=== PATIENT | female | born 1995 | race Caucasian/White ===

== ENCOUNTER 2016-08-07 22:18 | Emergency (ER) | payer OTHER ==
[~2016-08-07] VITALS: Ht 152.4 cm; Wt 56.0 kg
[~2016-08-07 22:18] MED LIST: BCPILLS PO; BIOTCAP2 PO; CHOL100010 PO
[2016-08-07 22:25] VITALS: Ht 152.4 cm; Wt 56.0 kg
[2016-08-08 00:32] VITALS: TEMP 36.9
[2016-08-08 00:45] VITALS: O2SAT 98
[2016-08-08] MEDS ORDERED: TRVHP PO (00:47)
[2016-08-08] MEDS ORDERED: RALT400T PO (00:47)
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
[2016-08-08] MEDS ORDERED: LEVONORGESTREL (EMERGENCY OC) 1.5 MG TAB PO ONE (00:54)
[2016-08-08] MEDS ORDERED: PHENERGAN 25MG HOMEPACK PO ONE (00:54)
[2016-08-08] MEDS ORDERED: AZITHROMYCIN 250 MG TAB ONE (00:54)
[2016-08-08] MEDS ORDERED: ONDANSETRON 4MG OD TAB ONE (00:55)
[2016-08-08] MEDS ORDERED: CEFTRIAXONE SOD 350MG/ML 1 GM VIAL IM ONE (00:55)
[2016-08-08] MEDS ORDERED: HIV POST EXPOSURE PROPHYLAXIS KIT ONE (00:57)
[2016-08-08 01:55] VITALS: BP 123/72; PULSE 92; O2SAT 99
== END 2016-08-08 01:45 | disposition home or self-care (01) ==
LOC: C.EDB 22:20
DX: T74.21XA Adult sexual abuse, confirmed, initial encounter (principal); X58.XXXA Exposure to other specified factors, initial encounter; Y07.59 Other non-family member, perpetrator of maltreatment and neglect

== ENCOUNTER 2017-03-17 21:02 | Emergency (ER) | payer OTHER ==
[~2017-03-17] VITALS: Ht 152.4 cm; Wt 58.1 kg
[~2017-03-17 21:02] MED LIST changes: -BCPILLS PO; -BIOTCAP2 PO; -CHOL100010 PO; +RALT400T PO; +TRVHP PO
[2017-03-17 21:04] VITALS: TEMP 36.4; Ht 152.4 cm; Wt 58.1 kg
[2017-03-17] MEDS ORDERED: PSEUCAP67 PO (21:28)
[2017-03-17] MEDS ORDERED: IBUP-103 PO (21:28)
[2017-03-17] MEDS ORDERED: PHENAZOPYRIDINE HCL 200 MG TAB PO STA (21:36)
--- NOTE | 2017-03-17 21:44 | EMERGENCY ROOM VISIT NOTE ---
History Report prepared by Tapan: Omari Aparicio Under the Supervision of: Dr. Zenaida Powell D.O. First contact with patient: 21:23 Chief Complaint: URINARY SYMPTOMS Stated Complaint: BURNING VAGINAL AREA, BLOOD IN URINE, ABD CRAMPS Nursing Triage Summary: urinary pain, burning, started yesterday. had blood in urine earlier today. symptoms now causing cramping in lower abdomen. History of Present Illness The patient is a 22 year old female who presents to the Emergency Room with complaints of intermittent dysuria that began last night. She rates her discomfort as a 6/10 in severity. The patient states that she was experiencing a headache, lightheadedness, soreness, and a slight fever two weeks ago and went to visit her PCP who said it was viral. She states that her doctor told her to take Advil, which she admits taking. The patient states that last night she noticed that she was experiencing a burning sensation in her genital area. She also reports that she has been experiencing dysuria and urgency. The patient states that her symptoms resolved until later today. She states that she started to experience chills, a headache, an episode of vomiting, hematuria , and dysuria. The patient also reports experiencing lower abdominal cramping, but denies any radiation to her back. The patient admits to a history of urinary reflux disease as a child. She also reports taking Bactrim for two years as a child. The patient denies back pain, fever, vaginal discharge, vaginal bleeding, a possible , and anaphylaxis or rash from an antibiotic. Source of History: patient Onset: last night Position: other (global) Symptom Intensity: 6/10 Timing: intermittent Associated Symptoms: + chills, + headache, + vomiting, + abdominal pain, + urinary symptoms, No fevers, No back pain Review of Systems See HPI for pertinent positives & negatives. A total of 10 systems reviewed and were otherwise negative. Past Medical & Surgical Medical Problems: (1) No Known Active Medical Problems Family History Hypertension Social History Smoking Status: Never Smoker Alcohol Use: none Drug Use: none Marital Status: single Housing Status: lives with roommate Occupation Status: [employer] student Current/Historical Medications Scheduled Cephalexin (Keflex), 1 CAP PO BID Etonogestrel (Nexplanon), 168 MG INTRAD CONTINOUS Scheduled PRN Ibuprofen Tab (Advil), 400 MG PO Q6H PRN for Pain Pseudoephedrine-Ibuprofen (Advil Cold & Sinus), 1 CAP PO UD PRN for Cold/Sinus Symptoms Allergies Coded Allergies: Lorazepam (Verified Adverse Reaction, Unknown, hallucinations, 08/07/16) Physical Exam Vital Signs Date Time Temp Pulse Resp B/P (MAP) Pulse Ox O2 Delivery O2 Flow Rate FiO2 03/17/17 22:19 80 18 107/68 100 Room Air 03/17/17 21:04 36.4 90 18 122/77 100 Room Air Physical Exam GENERAL: alert, well appearing, well nourished, no distress, non-toxic EYE EXAM: normal conjunctiva, PERRL and EOM's grossly intact NECK: supple, no nuchal rigidity, no adenopathy, non-tender LUNGS: Clear to auscultation. Normal chest wall mechanics HEART: no murmurs, S1 normal and S2 normal ABDOMEN: abdomen soft, mild suprapubic discomfort, normo-active bowel sounds, no masses, no rebound or guarding. BACK: Back is symmetrical on inspection and there is no deformity, no midline tenderness, no CVA tenderness. SKIN: no rashes and no bruising UPPER EXTREMITIES: upper extremities are grossly normal. LOWER EXTREMITIES: No pitting edema. NEURO EXAM: Normal sensorium, cranial nerves II-XII grossly intact, normal speech, no gross weakness of arms, no gross weakness of legs. Gross sensation intact. Medical Decision & Procedures Laboratory Results Test 03/17/17 21:06 Urine Color YELLOW Urine Appearance CLEAR (CLEAR) Urine pH 6.5 (4.5-7.5) Urine Specific [place] 1.009 (1.000-1.030) Urine Protein NEG (NEG) Urine Glucose (UA) NEG (NEG) Urine Ketones NEG (NEG) Urine Occult Blood 3+ (NEG) Urine Nitrite NEG (NEG) Urine Bilirubin NEG (NEG) Urine Urobilinogen NEG (NEG) Urine Leukocyte Esterase LARGE (NEG) Urine WBC (Auto) >30 /hpf (0-5) Urine RBC (Auto) 10-30 /hpf (0-4) Urine Hyaline Casts (Auto) 0 /lpf (0-5) Urine Epithelial Cells (Auto) 0-5 /lpf (0-5) Urine Bacteria (Auto) 1+ (NEG) Urine Renal Epithelial Cells /lpf (0-5) Urine Test NEG (NEG) Laboratory results per my review. Medications Administered Medications (Trade) Dose Ordered Sig/Hernan Route Start Time Stop Time Status Last Admin Dose Admin Phenazopyridine HCl (Pyridium Tab) 200 mg NOW STAT PO 03/17/17 21:36 03/17/17 21:37 DC 03/17/17 21:42 200 MG Cephalexin Monohydrate (Keflex Cap) 500 mg NOW ONCE PO 03/17/17 22:15 03/17/17 22:16 DC 03/17/17 22:31 500 MG ED Course 2051: The patient was evaluated in room C06. A complete history and physical exam was performed. 2135: Ordered Pyridium Tab 200 mg PO. 2214: Ordered Keflex Cap 500 mg PO. 2223: Upon reevaluation, the patient is feeling better. I discussed the findings and the treatment plan with the patient. She verbalizes agreement and understanding. The patient was discharged home. Medical Decision The differential diagnosis includes but is not limited to: UTI, pyelonephritis, , ectopic , STD, torsion, TOA. Patient well-appearing here despite complaints, doubt pyelonephritis, no symptoms to suggest kidney stone, doubt ectopic , torsion, patient not concerned with recent exposure to STDs, doubt PID, TOA, ruptured cyst. Patient' s UA suggestive of UTI as this patient's description of evolving symptoms last 48 hours. Discussed with patient use of antibiotics, symptoms to watch and return for, she verbalized understanding was agreeable to plan. Medication Reconcilliation Current Medication List: was personally reviewed by me Blood Pressure Screening Patient's blood pressure: Normal blood pressure Impression Primary Impression: Urinary tract infection Additional Impression: Dysuria Scribe Attestation The scribe's documentation has been prepared under my direction and personally reviewed by me in its entirety. I confirm that the note above accurately reflects all work, treatment, procedures, and medical decision making performed by me. Departure Information Dispostion Home / Self-Care Prescriptions Cephalexin (KEFLEX) 500 Mg Cap 1 CAP PO BID for 7 Days, #14 CAP Prov: Zenaida Powell, 03/17/17 Referrals No Doctor, Assigned (PCP) Forms HOME CARE DOCUMENTATION FORM, IMPORTANT VISIT INFORMATION Patient Instructions My [facility] Additional Instructions Please drink plenty of water and take the antibiotic until completed. You may use over the counter medicine to help with the urgency and discomfort of the infection. If you have any worsening pain, are unable to urinate, develop fevers/chills, back pain, increased abdominal pain, vomiting, vaginal discharge or bleeding, or you have any other new or concerning symptoms, please return to the emergency room. Problem Qualifiers Primary Impression: Urinary tract infection Urinary tract infection type: acute cystitis Hematuria presence: with hematuria Qualified Codes: N30.01 - Acute cystitis with hematuria
[2017-03-17 21:52] LABS: URINE APPEARANCE CLEAR (CLEAR); URINE BILIRUBIN NEG (NEG); URINE COLOR YELLOW; URINE NITRITE NEG (NEG); URINE PH 6.5 (4.5-7.5); URINE SPECIFIC GRAVITY 1.009 (1.000-1.030); UROBILINOGEN NEG (NEG); ZZUR CULT IF INDIC CLEAN CATCH YES
[2017-03-17 22:06] LABS: MANUAL MICROSCOPIC REQUIRED? NO; REVIEW REQ? YES
[2017-03-17] MEDS ORDERED: CEPHALEXIN MONOHYDRATE 250 MG CAP PO ONE (22:15)
[2017-03-17] MEDS ORDERED: CEPH-571 PO (22:15)
[2017-03-17 22:19] VITALS: BP 107/68; PULSE 80; O2SAT 100
[2017-03-17 22:47] LABS: URINE EPITHELIAL CELL AUTO 0-5 /lpf (0-5)
[2017-03-17] MEDS ORDERED: ETON1IMP2 INTRAD (23:02)
== END 2017-03-17 22:35 | disposition home or self-care (01) ==
LOC: C.EDB 21:04
DX: N30.01 Acute cystitis with hematuria (principal); R30.0 Dysuria; Z82.49 Family history of ischemic heart disease and other diseases of the circulatory system

== ENCOUNTER 2017-04-06 05:00 | Emergency (ER) | payer OTHER ==
[~2017-04-06] VITALS: Ht 152.4 cm; Wt 57.6 kg
[~2017-04-06 05:00] MED LIST changes: +ETON1IMP2 INTRAD; +IBUP-103 PO; +PSEUCAP67 PO; -RALT400T PO; -TRVHP PO
[2017-04-06 05:06] VITALS: TEMP 36.9; Ht 152.4 cm; Wt 57.6 kg
[2017-04-06] MEDS ORDERED: METHYLPREDNISOLONE 125 MG VIAL IV STA (05:24)
[2017-04-06] MEDS ORDERED: ALBUT/IPRATROP 3MG/0.5MG NEB 3 ML VIAL INH ONE (05:30)
[2017-04-06 06:07] LABS: BASO % 0.6 %; BASO ABS # 0.06 K/uL (0-0.2); COMPLETE YES; HEMATOCRIT 37.4 % (37-47); IG% 0.2 %; MEAN CELL VOLUME 86.8 fL (80-100); MEAN CORPUSCULAR HEMOGLOBIN 29.7 pg (25-34); MEAN CORPUSCULAR HGB CONC 34.2 g/dl (32-36); MEAN PLATELET VOLUME 10.3 fL (7.4-10.4); MONO % 8.1 %; NEUT % 44.1 %; PLATELET COUNT 351 K/uL (130-400); RED BLOOD COUNT 4.31 M/uL (4.2-5.4); WHITE BLOOD COUNT 10.69 K/uL (4.8-10.8)
[2017-04-06 06:13] LABS: BUN/CREATININE RATIO 12.1 (10-20); CALCIUM 8.8 mg/dl (8.5-10.1); CREATININE 0.68 mg/dl (0.60-1.20); POTASSIUM 3.6 mmol/L (3.5-5.1)
[2017-04-06 06:16] LABS: ALB/GLOB RATIO 1.1 (0.9-2)
[2017-04-06] MEDS ORDERED: PRED20TA2 PO (06:41)
[2017-04-06] MEDS ORDERED: ALBUTEROL HFA 8 GM INHALER INH ONE (06:45)
[2017-04-06 06:54] VITALS: BP 107/70; PULSE 80; O2SAT 100
--- NOTE | 2017-04-06 07:09 | DIAGNOSTIC IMAGING REPORT ---
CHEST 2 VIEWS ROUTINE HISTORY: Cough. Wheezing. COMPARISON: None. FINDINGS: The lungs are clear. Cardiac silhouette is normal in size. No pleural effusions. No pneumothorax. IMPRESSION: No acute process. Electronically signed by: Elliott Matute M.D. 04/06/2017 7:08 AM Dictated Date/Time: 04/06/2017 7:07 AM
--- NOTE | 2017-04-07 01:07 | EMERGENCY ROOM VISIT NOTE ---
History First contact with patient: :17 Chief Complaint: RESPIRATORY PROBLEMS Stated Complaint: WHEEZING,COUGH,TIGHT CHEST,THROAT HURTS,DIZZY History of Present Illness The patient is a 22 year old female who presents to the Emergency Room with complaints of coughing and wheezing over the past one day. The patient has had symptoms slowly worsening over the past 12-18 hours. She does not have a history of asthma in the past. She does not have fever or chills, and has not taken anything [id number] for her symptoms. She does have some chest discomfort after coughing, but not at rest. She does not have other symptoms or known exposure to disease. She considers herself usually healthy and up-to- date on her immunizations. She rates her discomfort a 6/10. Review of Systems More than 10 systems were reviewed and otherwise negative with the exception of history of present illness. Past Medical/Surgical History Medical Problems: (1) No Known Active Medical Problems Family History Hypertension Social History Smoking Status: Never Smoker Alcohol Use: none Drug Use: none Marital Status: single Housing Status: lives with roommate Occupation Status: [employer] student Current/Historical Medications Scheduled Etonogestrel (Nexplanon), 168 MG INTRAD CONTINOUS Prednisone (Prednisone Tab), 2 TAB PO DAILY Scheduled PRN Ibuprofen Tab (Advil), 400 MG PO Q6H PRN for Pain Pseudoephedrine-Ibuprofen (Advil Cold & Sinus), 1 CAP PO UD PRN for Cold/Sinus Symptoms Physical Exam Vital Signs Date Time Temp Pulse Resp B/P (MAP) Pulse Ox O2 Delivery O2 Flow Rate FiO2 04/06/17 06:54 80 20 107/70 100 04/06/17 05:06 36.9 80 22 107/70 100 Room Air Physical Exam VITALS: Vitals are noted on the nurse's note and reviewed by myself. Vital signs stable. GENERAL: Well-developed, well-nourished, white female, who is audibly wheezing seated in her emergency department bed HEAD: Normocephalic atraumatic. EARS: External ear normal. External auditory canals clear, tympanic membranes pearly thompson without erythema or effusion bilaterally. EYES: Pupils equal round and reactive to light and accommodation. Conjunctivae without injection, sclerae without icterus. Extraocular movements intact. NOSE: Patent, turbinates without inflammation or discharge. MOUTH: Mucous membranes moist. Tonsils are not enlarged. Pharynx without erythema, blood, or exudate. Uvula midline. Airway patent. NECK: Supple without nuchal rigidity. No lymphadenopathy. No thyromegaly. Cervical spine is nontender. HEART: Regular rate and rhythm without murmurs gallops or rubs. LUNGS: Diffuse wheezing with scattered rhonchi throughout ABDOMEN: Positive normal bowel sounds x 4. Soft, nontender, without masses or organomegaly. No guarding or rebound tenderness. Medical Decision & Procedures ER Provider Diagnostic Interpretation: CHEST 2 VIEWS ROUTINE HISTORY: Cough. Wheezing. COMPARISON: None. FINDINGS: The lungs are clear. Cardiac silhouette is normal in size. No pleural effusions. No pneumothorax. IMPRESSION: No acute process. Laboratory Results 04/06/17 05:45 Red Blood Count 4.31, Mean Corpuscular Volume 86.8, Mean Corpuscular Hemoglobin 29.7, Mean Corpuscular Hemoglobin Concent 34.2, Mean Platelet Volume 10.3, Neutrophils (%) (Auto) 44.1, Lymphocytes (%) (Auto) 44.0, Monocytes (%) (Auto) 8.1, Eosinophils (%) (Auto) 3.0, Basophils (%) (Auto) 0.6, Neutrophils # (Auto) 4.72, Lymphocytes # (Auto) 4.70, Monocytes # (Auto) 0.87, Eosinophils # (Auto) 0.32, Basophils # (Auto) 0.06 04/06/17 05:45 Test 04/06/17 05:45 White Blood Count 10.69 K/uL (4.8-10.8) Red Blood Count 4.31 M/uL (4.2-5.4) Hemoglobin 12.8 g/dL (12.0-16.0) Hematocrit 37.4 % (37-47) Mean Corpuscular Volume 86.8 fL (80-100) Mean Corpuscular Hemoglobin 29.7 pg (25-34) Mean Corpuscular Hemoglobin Concent 34.2 g/dl (32-36) Platelet Count 351 K/uL (130-400) Mean Platelet Volume 10.3 fL (7.4-10.4) Neutrophils (%) (Auto) 44.1 % Lymphocytes (%) (Auto) 44.0 % Monocytes (%) (Auto) 8.1 % Eosinophils (%) (Auto) 3.0 % Basophils (%) (Auto) 0.6 % Neutrophils # (Auto) 4.72 K/uL (1.4-6.5) Lymphocytes # (Auto) 4.70 K/uL (1.2-3.4) Monocytes # (Auto) 0.87 K/uL (0.11-0.59) Eosinophils # (Auto) 0.32 K/uL (0-0.5) Basophils # (Auto) 0.06 K/uL (0-0.2) RDW Standard Deviation 40.3 fL (36.4-46.3) RDW Coefficient of Variation 12.5 % (11.5-14.5) Immature Granulocyte % (Auto) 0.2 % Immature Granulocyte # (Auto) 0.02 K/uL (0.00-0.02) D-Dimer < 190 ug/L FEU (0-500) Anion Gap 7.0 mmol/L (3-11) Est Creatinine Clear Calc Drug Dose 101.4 ml/min Estimated GFR () 141.9 Estimated GFR (Non- 122.4 BUN/Creatinine Ratio 12.1 (10-20) Calcium Level 8.8 mg/dl (8.5-10.1) Total Bilirubin 0.4 mg/dl (0.2-1) Aspartate Amino Transf (AST/SGOT) 15 U/L (15-37) Alanine Aminotransferase (ALT/SGPT) 16 U/L (12-78) Alkaline Phosphatase 48 U/L (45-117) Total Protein 7.6 gm/dl (6.4-8.2) Albumin 4.0 gm/dl (3.4-5.0) Globulin 3.6 gm/dl (2.5-4.0) Albumin/Globulin Ratio 1.1 (0.9-2) Medications Administered Medications (Trade) Dose Ordered Sig/Hernan Route Start Time Stop Time Status Last Admin Dose Admin Methylprednisolone Sodium Succinate (Solu-Medrol IV) 125 mg NOW STAT IV 04/06/17 05:24 04/06/17 05:26 DC 04/06/17 05:41 125 MG Albuterol/ Ipratropium (Duoneb) 3 ml NOW ONCE INH 04/06/17 05:30 04/06/17 05:31 DC 04/06/17 05:41 3 ML Albuterol (Ventolin Hfa Inhaler) 2 puffs NOW ONCE INH 04/06/17 06:45 04/06/17 06:46 DC 04/06/17 06:49 60 PUFFS ED Course Physical exam and history were performed. Nursing notes, EMR, and Medication List were personally reviewed. Patient appears to have diffuse wheezing and rhonchi on examination. She does not have a history of asthma and her symptoms have been slowly worsening over the past 12 hours. IV access was established and labs were obtained. Chest x- ray was performed. The patient was given IV Solu-Medrol as well as a DuoNeb treatment here in the department. The patient's blood work is without a significantly elevated white blood cell count converse anemia, bandemia, or significant electrolyte imbalance. D-dimer 1 is negative. Chest x-ray does not show acute findings. On examination following steroids the patient felt significantly better. She did have a mild persistent cough, however her wheezing was almost completely resolved. The patient does feel well for discharge home, and this seems reasonable. I will give the patient a Ventolin inhaler from the department and give her a course of prednisone for the next few days. The patient was asked to follow with her primary care physician or [facility] for recheck of her condition. She was otherwise invited back to the ER with any new , worsening, or concerning symptoms. The chart was completed utilizing [employer] Speech Voice Recognition Software. Grammatical errors, random word insertions, pronoun errors, and incomplete sentences are an occasional consequence of this system due to software limitations, ambient noise, and hardware issues. Any formal questions or concerns about the content, text, or information contained within the body of this dictation should be directly addressed to the provider for clarification. . Medical Decision Differential diagnosis: Etiologies such as infections, reactive airway disease, pneumonia, pneumothorax , COPD, CHF, cardiac ischemia, pulmonary embolism, musculoskeletal, gastrointestinal, as well as others were entertained. Impression Primary Impression: Acute bronchitis Additional Impression: Wheezing Departure Information Dispostion Home / Self-Care Condition GOOD Prescriptions Prednisone (Prednisone Tab) 20 Mg Tab 2 TAB PO DAILY for 5 Days, #10 TAB Prov: Kamlesh Marcial PA-C 04/06/17 Forms WORK / SCHOOL INSTRUCTIONS, HOME CARE DOCUMENTATION FORM, Days off work : 1 Days off school: 1 IMPORTANT VISIT INFORMATION Patient Instructions My [facility] Additional Instructions You were seen and evaluated today on an emergency basis only. This is not a substitute for, or an effort to provide, complete comprehensive medical care. It is not possible to recognize and treat all injuries or illnesses in a single emergency department visit. For this reason it is recommended that you followup with your primary care physician this week with any ongoing or persistent symptoms. Use the albuterol inhaler. 2 puffs every 4-6 hours as needed. Take prednisone as prescribed You are welcome to return to the emergency department anytime with new, worsening, or concerning symptoms. Problem Qualifiers
== END 2017-04-06 06:55 | disposition home or self-care (01) ==
LOC: C.EDB 05:01
DX: J20.9 Acute bronchitis, unspecified (principal); Z79.899 Other long term (current) drug therapy; Z82.49 Family history of ischemic heart disease and other diseases of the circulatory system

== ENCOUNTER → 2017-06-27 | Outpatient (CLI) | payer OTHER ==
--- NOTE | 2017-06-29 16:25 | PULMONARY FUNCTION TEST ---
CLINICAL DATA: A 22-year-old female referred for evaluation of dyspnea with exertion. Spirometry pre- and post-exercise and post-bronchodilator was performed. The patient performed exercise on a bicycle ergometer, maximum tolerated, exercised for 5.5 minutes. Respiratory rate was 30 per minute. Post-testing occurred after 1, 5, 10, 15, and 20 minutes after exercise and post-inhalation of Ventolin with 4 puffs. There was wheezing noted after exercise. FINDINGS: The patient did demonstrate significant exercise-induced bronchospasm. FEV1 dropped 56% of predicted, FVC dropped 48% of predicted and [id number] dropped by 71%. There was some reversibility after inhaled bronchodilator. IMPRESSION: Exercise-induced bronchospasm with improvement after inhaled bronchodilator consistent with exercise-induced asthma. RECOMMENDATIONS: The patient may benefit from pre-exercise bronchodilator or treatment with inhaled steroids and long-acting bronchodilator on a regular basis. Clinical correlation is needed.
== END | disposition home or self-care (01) ==
LOC: C.RC 12:34
PROVIDERS: ATTEND Physician Assistant
DX: J45.990 Exercise induced bronchospasm (principal)